=== PATIENT | female | born 1985 | race Caucasian/White ===

== ENCOUNTER 2016-10-31 10:21 | Emergency (ER) | payer MEDICAID, OTHER ==
--- NOTE | 2016-10-31 10:59 | ED ---
Dizziness - HPI Summary HPI Summary: 31 y/o female here c/o dizziness since last Saturday. She reports as room spinning and worse when she gets up from a lying position and better when she lyes down or closes her eyes. She also reports she has a Migraine Headache yesterday but her symptoms of the SIERRA resolved. She denies any SIERRA today, denies any CP or palpitations, visual disturbances, fever or chills. She has no other complaits. Her LMP was 2 weeks ago. She has no other complaints. - History Of Current Complaint Chief Complaint: UCDizziness Stated Complaint: HEADACHE DIZZINESS Time Seen by Provider: 10/31/16 10:45 - Allergies/Home Medications Allergies/Adverse Reactions: Allergies Allergy/AdvReac Type Severity Reaction Status Date / Time Amoxicillin Allergy Rash And Verified 10/31/16 10:37 Itching Home Medications: Home Medications Multiple Vitamin [Multi Vitamin] 1 tab PO DAILY 10/31/16 [History Confirmed ] PMH/Surg Hx/FS Hx/Imm Hx Infectious Disease History: No Infectious Disease History: Denies: Traveled Outside the [place] in Last 30 Days - Social History Alcohol Use: Occasionally Substance Use Type: Reports: None Smoking Status (MU): Never Smoked Tobacco Review of Systems Constitutional: Negative Eyes: Negative ENT: Negative Cardiovascular: Negative Respiratory: Negative Gastrointestinal: Negative Genitourinary: Negative Musculoskeletal: Negative Skin: Negative Neurological: Other - Dizziness when she gets up from a lying position, walk or moves her head side to side. All Other Systems Reviewed And Are Negative: Yes Physical Exam - Summary Physical Exam Summary: VITAL SIGNS: Reviewed. GENERAL: Patient is a well developed and nourished female who is lying comfortable in the stretcher. Patient is not in any acute respiratory distress. HEAD AND FACE: No signs of trauma. No ecchymosis, hematomas or skull depressions. No sinus tenderness. EYES: PERRLA, EOMI x 2, No injected conjunctiva, no nystagmus. No photophobia. EARS: Hearing grossly intact. Ear canals and tympanic membranes are within normal limits. MOUTH: Oropharynx within normal limits. NECK: Supple, trachea is midline, no adenopathy, no JVD, no carotid bruit, no c- spine tenderness, neck with full ROM. No meningeal signs, no Kernig's or brudzinskis signs. CHEST: Symmetric, no tenderness at palpation LUNGS: Clear to auscultation bilaterally. No wheezing or crackles. CVS: Regular rate and rhythm, S1 and S2 present, no murmurs or gallops appreciated. ABDOMEN: Soft, non-tender. No signs of distention. No rebound no guarding, and no masses palpated. Bowel sounds are normal. EXTREMITIES: FROM in all major joints, no edema, no cyanosis or clubbing. NEURO: Alert and oriented x 3. No acute neurological deficits. Speech is normal and follows commands. SKIN: Dry and warm Triage Information Reviewed: Yes Vital Signs On Initial Exam: Initial Vitals Pulse Resp BP Pulse Ox 96 16 112/71 98 10/31/16 10:38 10/31/16 10:38 10/31/16 10:38 10/31/16 10:38 Vital Signs Reviewed: Yes Diagnostics - Vital Signs Vital Signs Pulse Resp BP Pulse Ox 10/31/16 10:38 96 16 112/71 98 - Laboratory Lab Statement: Any lab studies that have been ordered have been reviewed, and results considered in the medical decision making process. - EKG EKG Cardiac Rate: NL EKG Rhythm: Sinus Rhythm ST Segment: Normal Ectopy: None Dizzy Course/Dx - Course Assessment/Plan: 31 y/o female here c/o dizziness since last Saturday. She reports as room spinning and worse when she gets up from a lying position and better when she lyes down or closes her eyes. She also reports she has a Migraine Headache yesterday but her symptoms of the SIERRA resolved. She denies any SIERRA today, denies any CP or palpitations, visual disturbances, fever or chills. She has no other complaits. Her LMP was 2 weeks ago. She has no other complaints. EKG NSR w/o STMEI. She will be given a Rx for Antivert. She was advised to go to the ED if symptoms persist with taking meclezine, she develops again SIERRA, blurred vision or palpitations. She understands and agrees. I discussed all the findings and test results with the patient. Patient was instructed to return to the emergency room immediately if any of the symptoms return or worsens. Patient understands and agrees. Plan of care was discussed with the patient and patient understands and agrees with the plan of care. All questions were answered at patient satisfaction. There were no further complaints or concerns. Patient is alert and oriented x 3. Patient vital signs are stable. Patient is to follow up with primary care physician in the next 2 to 3 days. Patient understands and agrees. - Diagnoses Differential Diagnosis/HQI/PQRI: Labyrinthitis, Meniere's Disease, Medication Reaction Provider Diagnoses: Vertigo Discharge - Discharge Plan Condition: Stable Disposition: HOME Prescriptions: Meclizine TAB* [Antivert 12.5 TAB*] 25 mg PO TID PRN #30 tab PRN Reason: Dizziness Patient Education Materials: Vertigo (ED), Dizziness (ED) Referrals: [facility] [Outside] No Primary Care Phys,NOPCP [Primary Care Provider] -
[2016-10-31 11:20] VITALS: BP 112/71
== END 2016-10-31 11:24 | disposition home or self-care (01) ==
LOC: UCEAST 10:21
DX: R42 Dizziness and giddiness (principal); Z88.1 Allergy status to other antibiotic agents
CPT/HCPCS: 93005; 99202; G0463